=== PATIENT | female | born 1970 | race Caucasian/White ===

== ENCOUNTER 2023-05-09 09:28 | Emergency (ER) | payer SELFPAY ==
--- NOTE | ~2023-05-09 | XR_ITS ---
XR hand RT min 3V 05/09/2023 09:56 Indication: Right hand laceration Procedure: 3 views right hand Comparison: No prior studies for comparison. Findings: Osteopenia. 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 No soft tissue foreign bod ies. There is soft tissue irregularity in the webbing between the fourth and fifth digits. No fractur e or traumatic malalignment. Impression: 1: No acute bone or joint abnormality. Reviewed, dictated and finalized at location A. Impression: 1: No acute bone or joint abnormality.
[2023-05-09 09:30] VITALS: BP 140/78; PULSE 76; RESP 16; TEMP 36.6; O2SAT 99
[2023-05-09] MEDS: TETANUS,DIPHTHERIA,AC PERTUSSIS ADULT (0.5 ML) BOOSTRIX IM (09:47)
--- NOTE | 2023-05-09 09:57 | ED.GENADULT ---
HPI - General Adult General Chief complaint: Wound/Laceration Stated complaint: Laceration right pinky Time Seen by Provider: 05/09/23 09:42 History of Present Illness HPI narrative: 52-year-old female presented to the emergency department for evaluation of a laceration between her fourth and fifth fingers. Patient reports she was doing the dishes and cut her hand on a glass. Patient denies any associated numbness or weakness. Patient is unsure of when her tetanus was last updated. Related Data Allergies Allergy/AdvReac Type Severity Reaction Status Date / Time No Known Allergies Allergy Verified 05/09/23 09:34 Review of Systems Review of Systems: All systems reviewed & are unremarkable except as noted in HPI and below Exam Narrative: APPEARANCE: Well appearing, no pain, no distress, well-nourished. HEAD: normocephalic, atraumatic. EYES: PERRLA/EOMI, conjunctivae clear. NOSE: Normal no drainage NECK: Supple. No adenopathy, no masses. RESPIRATORY: Airway patent, respirations nonlabored. Clear to auscultation bilaterally, no rales, rhonchi, wheezing. CARDIOVASCULAR: Regular rate and rhythm without murmurs rubs or gallops. ABDOMINAL: Soft, nontender, nondistended, normal bowel sounds MUSCULOSKELETAL: Moves all extremities. Strength/ROM intact, No edema, No calf tenderness. NEURO: Neurovascular intact SKIN: Laceration to right intertriginous area between fourth and fifth fingers PSYCHIATRIC: Normal affect/mood. Course Course Emergency Course: 52-year-old female presented the ED for evaluation of a laceration to the intertriginous areas between the fourth and fifth fingers. X-ray showed no fracture or foreign body. Patient was neurovascularly intact with good strength and good pulses. Laceration was described as described the procedure note. Patient was placed in a bulky dressing and was encouraged of close follow-up with her primary care physician. Patient was also educated on reasons to follow-up with hand surgery. All question concerns were addressed and patient was well-appearing at time of discharge. Vital Signs Vital signs: Vital Signs Temperature 97.9 F 05/09/23 09:30 Pulse Rate 76 05/09/23 09:30 Respiratory Rate 16 05/09/23 09:30 Blood Pressure 140/78 05/09/23 09:30 Pulse Oximetry 99 05/09/23 09:30 Oxygen Delivery Room Air 05/09/23 09:30 Temperature 97.9 F 05/09/23 09:30 Pulse Rate 76 05/09/23 09:30 Respiratory Rate 16 05/09/23 09:30 Blood Pressure 140/78 05/09/23 09:30 Pulse Oximetry 99 05/09/23 09:30 Oxygen Delivery Room Air 05/09/23 09:30 Procedures Laceration Laceration 1: Date: 05/09/23 Time: 10:56 Site: hand Side (If applicable): right Size (cm): 4 Description: linear, irregular and clean Depth: simple, single layer Local Anesthetic: lidocaine 1% Amount of anesthesia used (mL): 5 Pre-repair: wound explored, irrigated and irrigated extensively ====== Skin Level ====== Skin layer closed with: nylon Size (cm): 4-0 Number of sutures: 5 Technique: simple, interrupted ====== Subcutaneous Layer ====== ====== Muscle Layer ====== ====== Tendon Layer ====== Medical Decision Making Vital Signs Vital Signs: Vital Signs Temperature 97.9 F 05/09/23 09:30 Pulse Rate 76 05/09/23 09:30 Respiratory Rate 16 05/09/23 09:30 Blood Pressure 140/78 05/09/23 09:30 Pulse Oximetry 99 05/09/23 09:30 Oxygen Delivery Room Air 05/09/23 09:30 Temperature 97.9 F 05/09/23 09:30 Pulse Rate 76 05/09/23 09:30 Respiratory Rate 16 05/09/23 09:30 Blood Pressure 140/78 05/09/23 09:30 Pulse Oximetry 99 05/09/23 09:30 Oxygen Delivery Room Air 05/09/23 09:30 Discharge Plan Discharge Clinical Impression: Laceration Patient Disposition: Home, Self-Care Condition: Stable Instructions: Antibiotic Form, Ca
== END 2023-05-09 11:36 | disposition home or self-care (01) ==
PROVIDERS: Emergency Provider Emergency Medicine
DX: S61.216A Laceration without foreign body of right little finger without damage to nail, initial encounter (principal); Z23 Encounter for immunization; W25.XXXA Contact with sharp glass, initial encounter
CPT/HCPCS: 12002; 73130; 90471; 90715; 99283